=== PATIENT | female | born 1965 | race Caucasian/White ===

== ENCOUNTER 2017-02-14 18:21 | Emergency (ER) | payer OTHER ==
[~2017-02-14] VITALS: Ht 167.6 cm; Wt 163.6 kg
[~2017-02-14 18:21] MED LIST: ALL DAY ALLERGY10 M3 PO; AMBIEN10 MG; AMBIEN10 MG PO; ASPIRIN81 M2 PO; ATHENOL325 MG PO; BENTYL10 MG PO; COLACE100 MG PO; CYMBALTA30 MG PO; Claritin,Alavart PO; DESYREL100 MG PO; Ecotrin PO; FLEXERIL10 MG PO; IBUPROFEN600 MG PO; LISINOPRIL20 MG PO; MOTRIN800 MG PO; Mevacor PO; NEURONTIN300 MG PO; NORVASC10 MG PO; Neurontin PO; Norvasc PO; PEPCID20 MG PO; PERCOCET 7.51 TABLET PO; PRAVACHOL40 MG PO; Percocet 7.5/325,End PO; RANITIDINE HCL150 M1 PO; RISPERDAL1 MG PO; ROBAFEN CF SYR118 M1 PO; TORADOL10 MG PO; ULTRAM50 MG PO; ZANAFLEX4 M1 PO; ZANAFLEX4 MG PO; ZESTRIL20 MG PO; ZITHROMAX Z-PA250 MG PO; ZOCOR20 MG PO; ZOFRAN4 MG PO; ZOLOFT100 MG PO; ZYRTEC10 M2 PO; Zestril,Prinivil PO; Zocor PO
[2017-02-14] MEDS ORDERED: MOTRIN600 MG PO (20:56)
[2017-02-14] MEDS ORDERED: NORCO 5/3251 TABLET PO (20:56)
[2017-02-14 21:11] VITALS: BP 165/95
== END 2017-02-14 21:12 | disposition home or self-care (01) ==
LOC: EME 18:21
DX: S83.92XA Sprain of unspecified site of left knee, initial encounter (principal); X50.1XXA Overexertion from prolonged static or awkward postures, initial encounter; I10 Essential (primary) hypertension; Z79.82 Long term (current) use of aspirin
CPT/HCPCS: 73564; 99281; 99284

== ENCOUNTER 2017-03-16 17:37 | Emergency (ER) | payer OTHER ==
[~2017-03-16] VITALS: Ht 167.6 cm; Wt 161.1 kg
[~2017-03-16 17:37] MED LIST changes: +MOTRIN600 MG PO; +NORCO 5/3251 TABLET PO
[2017-03-16] MEDS ORDERED: FLEXERIL10 MG PO (19:58)
[2017-03-16] MEDS ORDERED: NAPROSYN500 MG PO (19:58)
[2017-03-16 20:15] VITALS: BP 156/99
== END 2017-03-16 20:16 | disposition home or self-care (01) ==
LOC: EME 17:37
DX: S39.012A Strain of muscle, fascia and tendon of lower back, initial encounter (principal); S16.1XXA Strain of muscle, fascia and tendon at neck level, initial encounter; S80.02XA Contusion of left knee, initial encounter; V49.40XA Driver injured in collision with unspecified motor vehicles in traffic accident, initial encounter; Y92.410 Unspecified street and highway as the place of occurrence of the external cause; I10 Essential (primary) hypertension; E78.5 Hyperlipidemia, unspecified
CPT/HCPCS: 72040; 72100; 73564; 99281; 99283

== ENCOUNTER 2017-12-01 12:33 | Day surgery (SDC) | payer OTHER ==
[~2017-12-01] VITALS: Ht 167.6 cm; Wt 163.3 kg
[~2017-12-01 12:33] MED LIST changes: -ASPIRIN81 M2 PO; +LO-DOSE ASPIRIN81 M1 PO; +LOPRESSOR50 MG PO; +NAPROSYN500 MG PO; +OXYCODONE-ACET1 EACH PO
== END 2017-12-01 15:00 | disposition home or self-care (01) ==
LOC: PAIN 12:33 → SDC 14:15 → PAIN 15:00
DX: M47.816 Spondylosis without myelopathy or radiculopathy, lumbar region (principal); M51.36 Other intervertebral disc degeneration, lumbar region; M17.10 Unilateral primary osteoarthritis, unspecified knee; I10 Essential (primary) hypertension; M79.1 Myalgia; E11.9 Type 2 diabetes mellitus without complications; E78.01 Familial hypercholesterolemia; K21.9 Gastro-esophageal reflux disease without esophagitis; E66.01 Morbid (severe) obesity due to excess calories; Z68.43 Body mass index [BMI] 50.0-59.9, adult; G47.30 Sleep apnea, unspecified; Z87.891 Personal history of nicotine dependence; Z79.891 Long term (current) use of opiate analgesic
CPT/HCPCS: 93005; J1030; J2250; J3010; S0020

== ENCOUNTER 2017-12-08 09:56 | Day surgery (SDC) | payer OTHER ==
[~2017-12-08] VITALS: Ht 167.6 cm; Wt 163.3 kg
== END 2017-12-08 10:55 | disposition home or self-care (01) ==
LOC: PAIN 09:56 → SDC 10:45 → PAIN 10:45
DX: M47.816 Spondylosis without myelopathy or radiculopathy, lumbar region (principal); M51.36 Other intervertebral disc degeneration, lumbar region; M17.10 Unilateral primary osteoarthritis, unspecified knee; I10 Essential (primary) hypertension; E78.01 Familial hypercholesterolemia; K21.9 Gastro-esophageal reflux disease without esophagitis; E66.01 Morbid (severe) obesity due to excess calories; Z68.43 Body mass index [BMI] 50.0-59.9, adult; R73.03 Prediabetes; G47.30 Sleep apnea, unspecified; Z79.82 Long term (current) use of aspirin; Z87.891 Personal history of nicotine dependence; Z79.891 Long term (current) use of opiate analgesic
CPT/HCPCS: J1030; J2250; J3010; S0020

== ENCOUNTER 2017-12-11 13:14 | Emergency (ER) | payer OTHER ==
[~2017-12-11] VITALS: Ht 167.6 cm; Wt 164.9 kg
[2017-12-11 13:43] LABS: HEMOGLOBIN 14.7 G/DL (11.9-15.5); MCH 29.3 PG (29.0-34.0); MCHC 33.4 G/DL (30.0-36.0); MCV 87.6 FL (83-99); PLATELET COUNT 128 K/uL (156-360); RBC DIS.WIDTH-SD 44.3 % (39-53); RED BLOOD COUNT 5.02 M/uL (3.80-5.20); WHITE BLOOD COUNT 6.1 K/uL (4.1-10.2)
[2017-12-11 13:54] LABS: CHLORIDE 103 mEq/L (99-109); POTASSIUM 4.4 mEq/L (3.7-5.4); SODIUM 138 mEq/L (136-147)
[2017-12-11 13:56] LABS: GLUCOSE 106 mg/dL (70-99)
[2017-12-11 14:00] LABS: CREATININE 0.9 mg/dL (0.6-1.3); GFR ESTIMATE (CALCULATED) > 59 mL/min/
[2017-12-11 14:01] LABS: UREA NITROGEN (BUN) 21 mg/dL (9-23)
[2017-12-11 14:09] LABS: TROP-I INTERPRETATION NEGATIVE; TROPONIN-I < 0.01 ng/mL (0.0-0.30)
[2017-12-11 16:40] LABS: TROP-I INTERPRETATION NEGATIVE; TROPONIN-I < 0.01 ng/mL (0.0-0.30)
[2017-12-11 17:27] VITALS: BP 140/96
== END 2017-12-11 17:30 | disposition home or self-care (01) ==
LOC: EME 13:14
PROVIDERS: Emergency Medicine
DX: R07.9 Chest pain, unspecified (principal); E11.9 Type 2 diabetes mellitus without complications; E78.5 Hyperlipidemia, unspecified; G43.909 Migraine, unspecified, not intractable, without status migrainosus; D64.9 Anemia, unspecified; Z79.82 Long term (current) use of aspirin; Z79.891 Long term (current) use of opiate analgesic; Z91.040 Latex allergy status; Z87.891 Personal history of nicotine dependence; Z83.3 Family history of diabetes mellitus
CPT/HCPCS: 71046; 80048; 84484; 85027; 93005; 99281; 99284

== ENCOUNTER 2018-02-06 08:23 | Day surgery (SDC) | payer OTHER ==
[~2018-02-06] VITALS: Ht 167.6 cm; Wt 167.8 kg
[~2018-02-06 08:23] MED LIST changes: +ATARAX,VISTARIL25 MG PO; +CATAPRES0.1 MG PO; +FLEXERIL5 MG PO; +HYZAAR 100-21 TABLET PO; +KENALOG,ARISTOC80 GM TP; +LIPITOR40 MG PO; +ZANTAC150 MG PO
== END 2018-02-06 09:35 | disposition home or self-care (01) ==
LOC: PAIN 08:23 → SDC 09:15 → PAIN 09:15
DX: M47.816 Spondylosis without myelopathy or radiculopathy, lumbar region (principal); M51.36 Other intervertebral disc degeneration, lumbar region; M99.83 Other biomechanical lesions of lumbar region; Z87.891 Personal history of nicotine dependence; E66.01 Morbid (severe) obesity due to excess calories; Z68.44 Body mass index [BMI] 60.0-69.9, adult; E11.9 Type 2 diabetes mellitus without complications; I10 Essential (primary) hypertension; E78.5 Hyperlipidemia, unspecified; Z91.040 Latex allergy status
CPT/HCPCS: J1030; J2250; S0020

== ENCOUNTER 2018-02-13 08:23 | Day surgery (SDC) | payer OTHER ==
[~2018-02-13] VITALS: Ht 167.6 cm; Wt 167.8 kg
== END 2018-02-13 09:50 | disposition home or self-care (01) ==
LOC: PAIN 08:23 → SDC 09:15 → PAIN 09:50
DX: M47.816 Spondylosis without myelopathy or radiculopathy, lumbar region (principal); M51.36 Other intervertebral disc degeneration, lumbar region; M99.83 Other biomechanical lesions of lumbar region; Z87.891 Personal history of nicotine dependence; E66.01 Morbid (severe) obesity due to excess calories; Z68.44 Body mass index [BMI] 60.0-69.9, adult; E11.9 Type 2 diabetes mellitus without complications; I10 Essential (primary) hypertension; E78.5 Hyperlipidemia, unspecified; K21.9 Gastro-esophageal reflux disease without esophagitis; Z91.040 Latex allergy status
CPT/HCPCS: J1030; J2250; S0020